=== PATIENT | female | born 2000 | race Caucasian/White ===

== ENCOUNTER 2019-08-12 21:45 | Emergency (ER) | payer SELFPAY ==
[2019-08-12 22:58] VITALS: BP 115/60
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
== END 2019-08-12 22:58 | disposition left against medical advice (07) ==
LOC: ED 21:45
DX: M25.561 Pain in right knee (principal); Z53.21 Procedure and treatment not carried out due to patient leaving prior to being seen by health care provider